=== PATIENT | female | born 1960 | race Caucasian/White ===

== ENCOUNTER 2016-11-01 05:24 | Day surgery (SDC) | payer OTHER ==
[2016-10-31 14:01] LABS: HEMATOCRIT 37.8 % (36.0-48.0); HEMOGLOBIN 12.8 g/dL (12-16); MCH 31.1 pg (26.0-34.0); MCHC 33.9 g/dL (31.0-37.0); MCV 91.7 fL (80.0-100.0); MEAN PLATELET VOLUME 9.9 fL (7.4-10.4); RBC 4.12 10x6/uL (4.00-5.40); RDW 12.2 % (11.5-14.5); WBC 5.1 10x3/uL (4.8-10.8)
[~2016-11-01] VITALS: Ht 157.5 cm; Wt 68.9 kg
--- NOTE | ~2016-11-01 | OP ---
PATIENT NAME: MIRIAM ZAMORA MEDICAL RECORD: [id number] :60 LOCATION:D.OPS ADMISSION DATE: SURGEON: KAYLEE NANCE DPM DATE OF OPERATION: 11/01/2016 PREOPERATIVE DIAGNOSES: 1. Calcaneal spur, left posterior heel. 2. Achilles disruption, left foot. POSTOPERATIVE DIAGNOSES: 1. Calcaneal spur, left posterior heel. 2. Achilles disruption, left foot. PROCEDURES: 1. Gastroc recession, left leg. 2. Calcaneal spur removal, left posterior foot. 3. Achilles repair, left foot. ANESTHESIA: Preoperative popliteal block per the anesthesia department with general anesthesia intraoperatively. HEMOSTASIS: Left thigh tourniquet at 350 mmHg. PREOPERATIVE DETAILS: The patient was brought to the operating room and following induction of general anesthesia, the patient was placed on the operating table in a prone position. The left extremity was then prepped and draped in the usual aseptic technique followed by exsanguination of the left leg and inflation of tourniquet. PROCEDURE #1: Gastroc recession, left leg. A 15-blade was used to create a 3.5-4 cm linear incision over the posterior aspect of the gastroc aponeurosis of the left leg. The incision was deepened down through subcutaneous tissue bluntly. The sural nerve and vein were retracted in the wound. Dissection was carried down to the peritenon of the aponeurosis. Incision was made in the peritenon and the peritenon was freed from the aponeurosis. With the foot held in dorsiflexion, an incision was made through the aponeurosis allowing adequate ankle dorsiflexion. The wound was flushed and the skin was closed with skin phuong. PROCEDURE #2: Calcaneal spur removal, left foot. A 15-blade was used to create a 5 cm linear incision over the posterior aspect of the insertion of the Achilles tendon area. The incision was deepened down through subcutaneous tissue being sure to preserve the peritenon. Once dissection down to Achilles tendon was performed, a linear incision was made in the peritenon and the Achilles tendon was exposed. At this time, a 15-blade was used to free the remaining attachments of the Achilles tendon, exposing the back of the calcaneus. A sagittal saw was then used to resect the prominence and the spurring from the back of the calcaneus. The areas were smoothed with a rasp and flushed with saline. PROCEDURE #3: Repair of the Achilles tendon, left foot. Utilizing suture bridge technique with 4 anchors in the calcaneus, the Achilles tendon was repaired with 2 proximal anchors and 2 distal anchors overlying a FiberWire. Excellent rigid fixation was noted. The ankle was able to be put in dorsiflexion with the fixation of the tendon intact. Augmented sutures were OPERATIVE REPORT [id number] MIRIAM ZAMORA placed on the lateral and medial aspect of the Achilles tendon, attaching it to the periosteum of the calcaneus. A 2-0 Vicryl was then used to repair the peritenon and deep tissue, 4-0 Rapide was used to close the subcutaneous tissue and 4-0 Rapide was used to close the skin in a subcuticular technique followed by Dermabond, Adaptic, 4 x 4 and Conform were used to dress the wounds followed by application of a modified Sarabia compression dressing. Tourniquet was deflated. POSTOPERATIVE DETAILS: The patient tolerated the procedure well and left the OR with vital signs stable and vascular status at preoperative levels. The patient was transported to recovery per anesthesia in stable condition. TRANSINT:[id number] Voice Confirmation ID: [id number] DOCUMENT ID: [id number] KAYLEE NANCE DPM CC: [id number] DICTATION DATE: 11/01/16923 COWLMAN: 11/01/16 [address] [facility] [address] [place] [address]
[~2016-11-01 05:24] MED LIST: ALLEGRA-D1 TAB.SR1 PO; ASPIRIN EC81 M1 PO; BREO ELLIPTA 11 EACH INH; BUPROPION XL300 MG PO; CELEXA20 MG PO; GLUCOSAMINE & C1 CAP PO; ISOSORBIDE MONO30 M1 PO; LIPITOR80 MG PO; LISINOPRIL5 MG PO; LOPRESSOR25 MG PO; LUNESTA1 MG PO; NEXIUM40 MG PO; NITROMIST8.5 GM SL; PROAIR HFA8.5 GM INH; SEROQUEL50 MG PO; SINGULAIR10 MG PO; TEGRETOL200 MG PO; TRAZODONE HCL150 MG PO; TUMERIC PO; UBIQUINOL PO; VIMOVO 500-201 EACH PO
[2016-11-01 06:33] VITALS: BP 104/72; Ht 157.5 cm; Wt 68.9 kg
--- NOTE | 2016-11-01 08:03 | NUR ---
PATIENT PLACED PRONE WHILE AWAKE CHECKED FOR ANY IMPINGEMENTS AND CONFORT WHILE AWAKE, LIDIA.
== END 2016-11-01 12:25 | disposition home or self-care (01) ==
LOC: D.OPS 05:24 → D.PAN 07:30 → D.OPS 07:30
PROVIDERS: Anesthesiology
DX: M77.32 Calcaneal spur, left foot (principal); S86.012A Strain of left Achilles tendon, initial encounter